=== PATIENT | female | born 2000 | race Caucasian/White ===

== ENCOUNTER → 2025-03-09 11:59 | Outpatient (REF) | payer OTHER, SELFPAY | LOC: MRI 11:59 | PROVIDERS: ATTENDING PHYSICIAN Otolaryngology | DX: H93.12 Tinnitus, left ear (principal) | CPT/HCPCS: 70553; A9575 ==

== ENCOUNTER 2025-03-22 21:34 | Emergency (ER) | payer OTHER, SELFPAY ==
[2025-03-22 21:39] VITALS: BP 148/92
[2025-03-22 21:53] LABS: % Basophils 0.5 % (0-2); % Eosinophils 1.4 % (0-6); % Immature Granulocytes 0.2 % (0-0.5); % Monocytes 7.3 % (1.7-9.3); % Neutrophils 45.6 % (42.2-75.2); Absolute Basophils 0.1 10^3/uL (0-0.2); Absolute Eosinophils 0.1 10^3/uL (0-0.7); Absolute Lymphocytes 4.2 10^3/uL (1.2-3.4); Absolute Monocytes 0.7 10^3/uL (0.1-0.6); Absolute Neutrophils 4.2 10^3/uL (1.4-6.5); Hemoglobin 13.3 g/dL (12.0-16.0); Mean Corpuscular Hgb 30.5 pg (27.0-31.0); Mean Corpuscular Volume 87.2 fL (81.0-99.0); Mean Platelet Volume 10.7 fL (7.4-10.4); Nucleated Red Blood Cells % 0 %; Platelet Count 222 10^3/uL (130-400); Red Blood Cell Count 4.36 10^6/uL (4.20-5.40); Red Cell Dist. Width 11.7 % (11.5-14.5); White Blood Cell Count 9.3 10^3/uL (4.8-10.8)
[2025-03-22 22:10] LABS: ALT (SGPT) 17 U/L (0-35); AST (SGOT) 23 U/L (14-36); Albumin 5.1 g/dl (3.5-5.0); Alkaline Phosphatase 70 U/L (38-126); Blood Urea Nitrogen 12 mg/dl (7-17); Calcium 9.7 mg/dl (8.4-10.2); Carbon Dioxide 27 mmol/L (22-30); Chloride 107 mmol/L (98-107); Glucose 126 mg/dl (70-99); Potassium 3.9 mmol/L (3.5-5.1); Sodium 138 mmol/L (135-145); Total Bilirubin 0.9 mg/dl (0.2-1.3); Total Protein 7.3 g/dl (6.3-8.2); eGFR > 60.00
[2025-03-22 22:11] LABS: HCG, Serum Qualitative Screen Negative
[2025-03-22 22:20] LABS: Lipase 50 U/L (23-300)
[2025-03-22] MEDS: TORADOL 15 MG IV (22:26)
[2025-03-23 00:16] VITALS: BMI 25.3
[2025-03-23 00:20] VITALS: BP 113/67
--- NOTE | 2025-03-23 00:44 | ED.GENMED ---
History of Present Illness
General
Chief Complaint: Abdominal Pain
Source: patient
Exam Limitations: none
Time Seen by Provider: 03/23/25 00:21
Nursing documentation reviewed up to this point in time: agreed with
History of Present Illness
History of Present Illness:
24 y/o F with h/o IDDM
here with severe pain in her right abdomen/right side and up to her right chest while having intercourse
pt says the pain was intense and lasted about an hour before fully resolving
she feels anxious here now but has no pain
denies vaginal bleeding, vaginal fluid leakage, dysuria, heamturia, nausea, vomiting, diarrhea
immediately after she felt like she couldn't pee
pt came in apparently fairly uncomfortaable and the belt tender spoke with attending to order imaging
pt ulitmately had resolution of pain and feels fine now
she says she has had some pain with intercourse before but nothing this intense
her insulin pump is moved every 3 days and it is in the RLQ but no issues
dex com reading normal
no concern for STI
Past History
Past History
ED Past Medical History: IDDM
Social History
Tobacco: Non-smoker
Alcohol: Occasional
Drug: None
Personal: Single
Living: with family
Review of Systems
Review of Systems
Allergies reviewed?: Yes
All Other Systems: Not applicable
Phy Exam
Physical Exam
Physical Exam:
GENERAL: Alert , in no apparent distress
EYE: pupils equal and reactive
NECK: Supple
ENT: o/p clr, mmm.
CARDIAC: Regular rate and rhythm .
LUNGS: Clear breath sounds bilaterally, no acute respiratory distress, no wheezes/rales/rhonchi
ABDOMEN: Soft, without focal tenderness, no r/g, no cvat, normal bowel sounds
insulin pump in RLQ
NEUROLOGICAL: Alert and oriented, no focal neuro deficits
SKIN: Warm and dry, skin intact.
MUSCULOSKELETAL: No edema, well perfused. neg benedict's sign
PSYCH: Normal and appropriate interaction.
Course
Orders/Labs/Results
Orders:
Orders
03/22/25 21:41
Test Result ONCE
03/22/25 21:45
Complete Blood Count/With Diff Urgent
Comprehensive Metabolic Panel Urgent
HCG, Serum Qualitative Screen Urgent
Lipase Urgent
03/22/25 22:13
Ketorolac [Toradol] 15 mg IV NOW STA
US Abdomen Limited Urgent
Reason For Exam: R pain
US Pelvis Only (non-obstetric) Urgent
Comment:
Reason For Exam: abrupt R pain eval for torsion
03/22/25 22:30
CT Abd/pel Without Iv Or Oral Urgent
Comment:
Reason For Exam: Thank you forabrupt R pain
03/23/25 00:07
Urinalysis Reflex To Culture Urgent
Date Specimen was Collected: 03/23/25
Time Specimen was Collected: 00:04
Abnormal Lab Results
03/22/25
21:45
MPV 10.7 H fL
(7.4-10.4)
Absolute Lymphs (auto) 4.2 H 10^3/uL
(1.2-3.4)
Absolute Monos (auto) 0.7 H 10^3/uL
(0.1-0.6)
Glucose 126 H mg/dl
(70-99)
Albumin 5.1 H g/dl
(3.5-5.0)
03/22/25 21:45
03/22/25 21:45
Vital Signs
Initial and Last Documented VS:
Initial Vital Signs
Temp Pulse Resp BP Pulse Ox
36.9 C 75 16 148/92 100
03/22/25 21:39 03/22/25 21:39 03/22/25 21:39 03/22/25 21:39 03/22/25 21:39
Last Documented Vital Signs
Temp Pulse Resp BP Pulse Ox
36.9 C 52 14 113/67 99
03/22/25 21:39 03/23/25 00:20 03/23/25 00:20 03/23/25 00:20 03/23/25 00:20
MDM/Problems Addressed
Differential Diagnosis Includes:
bladder spasm, msk pain, vaginal wall tear, ovarian cyst rupture
MDM/Problems Addressed:
24 y/o F
severe pain in her R pelvis/right upper abd and into her shoulder with interoucrse tonight
couldn't void afterward
was really uncomfortable on arrival but it resolved during testing and she has not had any pain since
had fullW/U with normal labs, hcg neg
RUQ normal
ct ? possible trace pelvis fluid
US of pelvis no fluid o cyst rupture
pt's pelvic exam unremarkable
nontender
no tears or bleeding
no cmt
d/c home
*Critical Care Note
Total Time (30-74mins, 75-104mins- exclusive of procedures): Not Applicable
ED Attending Note
-
Portions of this chart may have been created with voice recognition software.� Occasional wrong word or��sound alike� substitutions may have occurred due to the inherent limitations of voice recognition software.
Discharge Plan
Departure
Patient Disposition: Home (Routine Discharge)
Date of Disposition: 03/23/25
Time of Disposition: 01:19
Patient with high blood pressure during this ER visit?: No
Condition: Fair
Covid-19: Not Applicable
Discharge Problem:
Abdominal pain
Instructions: Abdominal Pain
Prescriptions:
No Action
activated charcoal 260 mg Capsule
260 mg PO DAILY
cyanocobalamin (vitamin B-12) 1,000 mcg Tablet
1,000 mcg PO DAILY
insulin aspart U-100 [Novolog PenFill U-100 Insulin] 100 unit/mL cartridge
0 unit SC AC
insulin glargine [Lantus Solostar U-100 Insulin] 100 unit/mL (3 mL) insulin pen
24 unit SC DAILY
Referrals:
NONE,* [Family Provider] -
Activity Restrictions/Additional Instructions:
WE ARE NOT SURE THE CAUSE OF YOUR PAIN BUT PERHAPS YOU HAD A BLADDER SPASM THAT WAS INTENSE CAUSING THIS.
YOUR WORK UP HERE WAS VERY REASSURING
THERE WAS A QUESTINO OF WHETHER YOU HAD POSSIBLY RUPTURED AN OVARIAN CYST ON YOUR CAT SCAN BUT THEN YOUR ULTAROUSND DOESN'T SHOW ANY FLUID
SO THIS IS PROBABLY NOT WHAT HAPPENED
IT COULD HAVE BEEN A BLADDER SPASM OR SOME OTHER SPASM
FOLLOW UP WITH YOUR CUSTOMER ACCOUNT REPRESENTATIVE THIS WEEK OR NEXT
RETURN FOR: FEVER, WORSE PAIN, LEAKING VAGINAL FLUID, SEVERE BLEEDING,INABILITY TO URINATE OR ANY CONCERNS.
Interventions
Interventions:
*Risk Screen - Suicide Last Done: 03/22/25 21:41
*General Assessment Last Done: 03/23/25 00:17
*Neglect/Abuse Screening Last Done: 03/22/25 21:41
*ED- Fall Risk Assessment Last Done: 03/23/25 00:17
*ED COVID-19 Vaccine History Last Done: 03/23/25 00:17
QB-Pkurwc-Pcsirkhtfx Assessment Last Done: 03/23/25 00:14
Discharge Date and Time
Print Language: [id number]
[2025-03-23 01:06] LABS: Urine Albumin Negative (Neg - Trace); Urine Bilirubin Negative (Negative); Urine Character Clear (Clear); Urine Color Yellow; Urine Glucose Negative (Negative); Urine Ketone Negative (Negative); Urine Leukocyte Negative (Negative); Urine Nitrite Negative (Negative); Urine Occult Blood Negative (Negative); Urine Specific Gravity 1.015 (<1.030); Urine Urobilinogen Negative (Neg - 1+); Urine pH 6.5 (5.0-9.0)
[2025-03-23 01:42] VITALS: BP 133/79
[2025-03-23 01:44] VITALS: BP 133/79
== END 2025-03-23 01:45 | disposition home or self-care (01) ==
LOC: EMR 21:34
PROVIDERS: Student in an Organized Health Care Education/Training Program; EMERGENCY PHYSICIAN Emergency Medicine
DX: R10.9 Unspecified abdominal pain (principal); E11.9 Type 2 diabetes mellitus without complications
CPT/HCPCS: 99284; 96374; 74176; 76705; 76856; 80053; 81003; 83690; 84703; 85025